=== PATIENT | female | born 1965 | race Caucasian/White ===

== ENCOUNTER 2024-06-03 15:33 | Outpatient (CLI) | payer BC | END 2024-06-03 15:34 | disposition home or self-care (01) | LOC: CSHCT 15:33 | PROVIDERS: ATTEND Physician Assistant Medical | DX: R10.32 Left lower quadrant pain (principal); Z86.0100 Personal history of colon polyps, unspecified; K76.89 Other specified diseases of liver; K76.9 Liver disease, unspecified; D25.9 Leiomyoma of uterus, unspecified | CPT/HCPCS: 74177 ==

== ENCOUNTER 2024-06-24 15:35 | Outpatient (CLI) | payer BC | END 2024-06-24 15:36 | disposition home or self-care (01) | LOC: CSHCT 15:35 | PROVIDERS: ATTEND Internal Medicine Gastroenterology | DX: R93.3 Abnormal findings on diagnostic imaging of other parts of digestive tract (principal); Z53.9 Procedure and treatment not carried out, unspecified reason | CPT/HCPCS: 82565 ==